=== PATIENT | female | born 1930 | race Caucasian/White ===

== ENCOUNTER 2018-02-24 20:40 | Observation (INO) | payer MEDICARE ==
[2018-02-24] MEDS ORDERED: Ondansetron PF 4 MG/2 ML Vial ONE (21:06)
[2018-02-24 21:27] LABS: Band 36 % (5-11); Hemoglobin 12.6 g/dL (12.0-16.0); Large Platelets SLIGHT; Lymphocytes 4 % (21-51); MDiff Complete? YES; Mean Corpuscular HGB CONC 34.6 g/dL (32.0-36.0); Mean Corpuscular Hemoglobin 31.9 pg (27.0-31.0); Mean Corpuscular Volume 92.2 fL (78.0-98.0); Mean Platelet Volume 8.4 fL (7.4-10.4); Neutrophil 60 % (42-75); Platelet Count 149 thou/uL (130-400); Platelet Morphology Comment Appears Adequate; RBC Distribution Width 11.4 % (11.5-14.5); Red Blood Cell (RBC) Count 3.95 mill/uL (4.20-5.40); White Blood Cell (WBC) Count 6.9 thou/uL (4.8-10.8)
[2018-02-24 21:29] LABS: ALT (SGPT) 21 U/L (8-55); AST (SGOT) 27 U/L (5-34); Albumin 3.8 g/dL (3.4-4.8); Alkaline Phosphatase 55 U/L (40-150); Anion Gap 19 mmol/L (10-20); BUN (Urea Nitrogen) 54 mg/dL (9.8-20.1); Bilirubin, Total 0.7 mg/dL (0.2-1.2); Calc. Creatinine Clearance 0 mL/min (70-130); Calcium 8.7 mg/dL (7.8-10.44); Carbon Dioxide 23 mmol/L (23-31); Chloride 95 mmol/L (98-107); Estimated GFR-MDRD 20; Globulin 2.6 g/dL (2.4-3.5); Glucose 175 mg/dL (83-110); Lipase 18 U/L (8-78); Protein, Total 6.4 g/dL (6.0-8.3); Sodium 133 mmol/L (136-145)
[2018-02-24 21:58] LABS: Potassium 3.5 mmol/L (3.5-5.1)
[2018-02-25] MEDS ORDERED: Loperamide HCl 2 MG CAP ONE (00:34)
[2018-02-25 05:49] LABS: #Basophils 0.1 thou/uL (0.0-0.2); #Eosinphils 0.1 thou/uL (0.0-0.7); #Lymphocytes 0.3 thou/uL (1.20-3.40); #Monocytes 0.5 thou/uL (0.11-0.59); #Neutrophils 8.1 thou/uL (1.40-6.50); %Basophils 0.6 % (0.0-1.0); %Eosinophils 0.6 % (0.0-10.0); %Lymphocytes 2.9 % (21.0-51.0); %Neutrophils 89.9 % (42.0-75.0); Hemoglobin 11.3 g/dL (12.0-16.0); Mean Corpuscular HGB CONC 34.5 g/dL (32.0-36.0); Mean Corpuscular Hemoglobin 31.7 pg (27.0-31.0); Mean Corpuscular Volume 91.7 fL (78.0-98.0); Platelet Count 129 thou/uL (130-400); RBC Distribution Width 11.7 % (11.5-14.5); Red Blood Cell (RBC) Count 3.58 mill/uL (4.20-5.40); White Blood Cell (WBC) Count 9.1 thou/uL (4.8-10.8)
[2018-02-25 05:55] LABS: Anion Gap 14 mmol/L (10-20); BUN (Urea Nitrogen) 49 mg/dL (9.8-20.1); Calc. Creatinine Clearance 0 mL/min (70-130); Calcium 7.9 mg/dL (7.8-10.44); Carbon Dioxide 25 mmol/L (23-31); Chloride 100 mmol/L (98-107); Estimated GFR-MDRD 23; Glucose 158 mg/dL (83-110); Potassium 3.6 mmol/L (3.5-5.1); Sodium 135 mmol/L (136-145)
== END 2018-02-25 07:20 | disposition home or self-care (01) ==
LOC: SCSER 20:40 → SCSEROBS 22:00
PROVIDERS: ADMIT Emergency Medicine; ATTEND Emergency Medicine
DX: E86.0 Dehydration (principal); R19.7 Diarrhea, unspecified; R11.2 Nausea with vomiting, unspecified; F03.90 Unspecified dementia, unspecified severity, without behavioral disturbance, psychotic disturbance, mood disturbance, and anxiety; G60.0 Hereditary motor and sensory neuropathy; E11.9 Type 2 diabetes mellitus without complications; E03.9 Hypothyroidism, unspecified; K21.9 Gastro-esophageal reflux disease without esophagitis; E78.5 Hyperlipidemia, unspecified; E78.00 Pure hypercholesterolemia, unspecified; I11.0 Hypertensive heart disease with heart failure; I50.9 Heart failure, unspecified; Z85.038 Personal history of other malignant neoplasm of large intestine; Z79.4 Long term (current) use of insulin; Z79.82 Long term (current) use of aspirin; Z79.899 Other long term (current) drug therapy; Z91.041 Radiographic dye allergy status; Z90.49 Acquired absence of other specified parts of digestive tract
CPT/HCPCS: 80048; 80053; 83690; 85025 ×2; 96361; 96374; 99284; G0378; J2405

== ENCOUNTER 2018-08-29 09:19 | Emergency (ER) | payer MEDICARE ==
--- NOTE | 2018-08-29 09:57 | RAD ---
XR Pelvis AP STANDARD HISTORY: Pelvic and hip pain status post fall. COMPARISON: None. FINDINGS: The pelvic ring is intact without evidence of fracture. SI joints are symmetric. No diastas es of the symphysis. Postoperative changes of the lumbar spine are seen. Vascular calcifications are noted. IMPRESSION: No evidence of fracture.
--- NOTE | 2018-08-29 09:58 | RAD ---
XR Hip Rt 2-3 View HISTORY: Right hip pain status post fall COMPARISON: None. FINDINGS: There are minimal arthritic changes of the hip. There are no signs of fracture or dislocati on. Vascular calcifications are noted. IMPRESSION: No evidence of fracture.
== END 2018-08-29 10:05 | disposition home or self-care (01) ==
LOC: SCSER 09:19
DX: S70.01XA Contusion of right hip, initial encounter (principal); E11.9 Type 2 diabetes mellitus without complications; E03.9 Hypothyroidism, unspecified; K21.9 Gastro-esophageal reflux disease without esophagitis; E78.5 Hyperlipidemia, unspecified; I10 Essential (primary) hypertension; F41.9 Anxiety disorder, unspecified; W19.XXXA Unspecified fall, initial encounter
CPT/HCPCS: 72170

== ENCOUNTER 2019-08-23 17:21 | Inpatient (IN) | payer MEDICARE, OTHER ==
--- NOTE | 2019-08-23 18:39 | RAD ---
RIGHT HIP: 08/23/19 Two views. HISTORY: Fall with injury to right hip. There is an intertrochanteric fracture of the right hip without significant displacement. Degenerative changes at the hip again noted. IMPRESSION: Acute intertrochanteric fracture right hip. POS: AGW
[2019-08-23] MEDS ORDERED: Fentanyl 100 MCG/2 ML VIAL ONE (19:15)
[2019-08-23 19:28] LABS: #Eosinphils 0.1 thou/uL (0.0-0.7); #Lymphocytes 1.3 thou/uL (1.20-3.40); #Neutrophils 7.4 thou/uL (1.40-6.50); %Basophils 0.5 % (0.0-1.0); %Eosinophils 1.4 % (0.0-10.0); %Lymphocytes 13.1 % (21.0-51.0); %Monocytes 10.1 % (0.0-10.0); %Neutrophils 74.9 % (42.0-75.0); Hemoglobin 12.6 g/dL (12.0-16.0); Mean Corpuscular HGB CONC 33.9 g/dL (32.0-36.0); Mean Corpuscular Hemoglobin 32.6 pg (27.0-31.0); Mean Corpuscular Volume 95.9 fL (78.0-98.0); Mean Platelet Volume 8.8 fL (7.4-10.4); Platelet Count 218 thou/uL (130-400); RBC Distribution Width 11.7 % (11.5-14.5); Red Blood Cell (RBC) Count 3.86 mill/uL (4.20-5.40); White Blood Cell (WBC) Count 9.9 thou/uL (4.8-10.8)
[2019-08-23 19:35] LABS: PTT 28.3 sec (22.9-36.1); Prothrombin Time 13.2 sec (12.0-14.7)
[2019-08-23 19:53] LABS: ALT (SGPT) 19 U/L (8-55); AST (SGOT) 25 U/L (5-34); Albumin 4.2 g/dL (3.4-4.8); Alkaline Phosphatase 95 U/L (40-110); Anion Gap 15 mmol/L (10-20); BUN (Urea Nitrogen) 32 mg/dL (9.8-20.1); Bilirubin, Total 0.6 mg/dL (0.2-1.2); Calc. Creatinine Clearance 0 mL/min (70-130); Carbon Dioxide 29 mmol/L (23-31); Chloride 100 mmol/L (98-107); Estimated GFR-MDRD 32; Globulin 3.3 g/dL (2.4-3.5); Glucose 75 mg/dL (83-110); Potassium 3.7 mmol/L (3.5-5.1); Protein, Total 7.5 g/dL (6.0-8.3); Sodium 140 mmol/L (136-145)
--- NOTE | 2019-08-23 20:21 | RAD ---
PORTABLE CHEST: 08/23/19 HISTORY: Preop. COMPARISON: 08/20/15. Borderline cardiomegaly is stable. Dual lead pacemaker device is again noted. The lung blackwell appear clear. No evidence of vascular congestion, effusion, or infiltrate. IMPRESSION: No acute process. POS: AGW
[2019-08-23] MEDS ORDERED: Acetaminophen 500 MG TAB ONE (20:36)
[2019-08-23] MEDS ORDERED: Ondansetron PF 4 MG/2 ML Vial ONE (20:36)
[2019-08-23] MEDS ORDERED: Morphine 4 MG/ML VIAL ONE (20:36)
[2019-08-23] MEDS ORDERED: Morphine 2 MG/ML VIAL SLOW IVP PRN (20:40)
[2019-08-23] MEDS ORDERED: hydrALAZINE 20 MG/ML VIAL SLOW IVP PRN (20:40)
[2019-08-23] MEDS ORDERED: Ondansetron PF 4 MG/2 ML Vial IVP PRN (20:40)
[2019-08-23] MEDS ORDERED: Dextrose 50% Abboject 50 ML SYRINGE SLOW IVP PRN (20:40)
[2019-08-23] MEDS ORDERED: Dextrose 5% in Water 1,000 ML IV PRN (20:40)
[2019-08-23] MEDS ORDERED: Sodium Chloride 0.9% 1,000 ML IV SCH (20:45)
[2019-08-23] MEDS ORDERED: traMADol HCl 50 MG TAB PO PRN (20:50)
--- NOTE | 2019-08-23 21:46 | HP ---
TRAUMA SURGEON: Dr. Polanco. CONSULTING PHYSICIAN: Dr. Jacobsen. HISTORY OF PRESENT ILLNESS: The patient is an 88-year-old female, who presented to the emergency department via EMS after mechanical fall at her assisted living facility. The patient reports she is not sure why she fell, but she denies any syncopal episode. Denies loss of consciousness or anticoagulation use. Reports no other recent events. Denies any cardiac type symptoms. Denies numbness and tingling in the bilateral upper and lower extremities. Denies neck or back pain. REVIEW OF SYSTEMS: All additional review of systems negative except as indicated above. PAST MEDICAL HISTORY: Diabetes, CKD, AV block with bradycardia, pacemaker, dementia, systolic heart failure, GERD, colon cancer, hyperlipidemia, hypothyroidism, hypertension, and osteoarthritis. PAST SURGICAL HISTORY: The patient reports that she has had surgeries, but could not remember them. She has no family at the bedside due to COVID-19. SOCIAL HISTORY: The patient lives at assisted living facility. She reports smoking previously, but has not for over 10 years. Denies alcohol and drug use. MEDICATIONS: Levothyroxine, Lipitor, Mucinex, Tylenol, aspirin, Effexor, cyanocobalamin, losartan, hydralazine, Milk of magnesia, melatonin, Robitussin, Glucagon emergency kit, MiraLAX, Dulera, multivitamins, saline nasal spray, Humalog, furosemide, and Cepacol lozenges. ALLERGIES: IODINE CONTRAST. PHYSICAL EXAMINATION: VITAL SIGNS: Temperature 98.3, pulse 62, respirations 18, oxygen saturation 97% on room air, and blood pressure 149/70. PRIMARY SURVEY: Airway intact. Adequate breath sounds bilaterally. 2+ pulses in bilateral radials, femorals, and DPs. GCS 14-15, -1 for occasional confusion, this is her baseline. Gross motor and sensation are intact. No laceration or external bleeding. The patient has 2 small bruises to her abdomen, which are from her insulin shots. SECONDARY SURVEY: HEAD: Normocephalic, atraumatic. No gross palpable skull deformities and tenderness. EYES: Pupils 3-2, equal, round, reactive bilaterally. ENT: No signs of trauma. C-SPINE: No step-offs or deformities. Nontender. C-collar not in place. CHEST: Nontender. No crepitus. No abrasions or ecchymosis. Equal chest movement. ABDOMEN: Soft, nontender, nondistended. PELVIS: Stable to palpation. RECTAL: Deferred. GENITOURINARY: Deferred. EXTREMITIES: The patient's right lower extremity is externally rotated with no signs of deformity. She has tenderness over the right hip. Reports pain to the right knee and right distal tib-fib, but no pain on palpation. No abrasions or ecchymosis noted. 2+ pulses in bilateral radials, femorals, and DPs. BACK/SPINE: The patient reports no pain. No tenderness reported. NEUROLOGIC: 5/5 strength in bilateral inorganic chemistry teacher, plantar flexion, dorsiflexion, gross normal sensation x4 extremities. LABORATORY FINDINGS: White count 9.9, hemoglobin 12.6, hematocrit 37.0, platelets 218. INR 1.0. Sodium 140, potassium 3.7, chloride 100, bicarb 29, BUN 32, creatinine 1.52, glucose 75, AST 25, ALT 19, alkaline phosphatase 95, total bilirubin 0.6. DIAGNOSTIC FINDINGS: X-ray of the right hip demonstrates acute intertrochanteric fracture of the right hip. Chest x-ray demonstrates no acute process. ASSESSMENT: 1. Status post mechanical fall from standing. 2. Right intertrochanteric femur fracture. 3. Acute traumatic pain secondary to trauma. 4. History of diabetes, chronic kidney disease, atrioventricular block with bradycardia, status post pacemaker, dementia, systolic heart failure, gastroesophageal reflux disease, colon cancer, hyperlipidemia, hypothyroidism, hypertension, and osteoarthritis. PLAN: The patient will be admitted to the Trauma Service. She will go to the regular surgical nursing floor. Orthopedic Surgery plans to take the patient to the OR in the morning for fixation of the right intertrochanteric femur fracture. She will have a diabetic diet tonight and be n.p.o. at midnight. She will have insulin sliding scale. She will have normal saline 75 an hour for a total of 1 L. She will have both p.r.n. and scheduled pain medications. Once her med rec has been completed, we will start her home medications as clinically indicated. Postoperatively, the patient will work with Physical and Occupational Therapy and likely need placement at a rehab versus shelter facility. This patient was discussed with Dr. Polanco before this dictation. Job ID: [id number]
[2019-08-23 22:21] LABS: Magnesium 2.1 mg/dL (1.6-2.6); Phosphorus 2.3 mg/dL (2.3-4.7)
[2019-08-23] MEDS ORDERED: Potassium Phosphate 15 MMOL in Sodium Chloride 0.9% 250 ML 250 ML IVPB SCH (23:00)
[2019-08-23 23:04] VITALS: BMI 27.3
[2019-08-23] MEDS: Acetaminophen 500 MG TAB PO SCH (23:17)
[2019-08-23] MEDS: Senokot S 8.6-50 MG TAB PO SCH (23:17)
[2019-08-23] MEDS: Famotidine/PF 20 mg/2ml Vial SLOW IVP SCH (23:17)
[2019-08-23] MEDS: traMADol HCl 50 MG TAB PO PRN (23:24)
[2019-08-24 02:03] LABS: Clarity Turbid (Clear); Specific Gravity, Urine 1.011 (1.002-1.036)
[2019-08-24 02:04] LABS: Bilirubin Negative (Negative); Blood, Urine Negative (Negative); Glucose, Urine (Dipstick) Normal (Negative); Ketone, Urine Negative (Negative); Leukocyte 500 Leu/uL (Negative); Nitrite Negative (Negative); Protein, Urine (Dipstick) Negative (Neg-Trace); RBC/HPF 0-3 HPF (0-3); Urobilinogen Normal mg/dL (Less than 2); WBC/HPF Greater than 50 HPF (0-3)
[2019-08-24 02:05] LABS: Bacteria/HPF 3+ HPF (None Seen); Squamous Epithelial 0-3 HPF (0-3)
[2019-08-24 02:06] LABS: Urine Culture Reflex Yes Yes
[2019-08-24] MEDS ORDERED: Sodium Chloride 0.9% 1,000 ML IV SCH (02:30)
[2019-08-24] MEDS: Acetaminophen 500 MG TAB PO SCH ×4 (04:56→22:58)
[2019-08-24] MEDS: traMADol HCl 50 MG TAB PO PRN (04:56)
[2019-08-24] MEDS: Cipro 250 MG TAB PO SCH ×2 (04:57→20:01)
[2019-08-24 05:35] LABS: Band 13 % (5-11); Eosinophils 1 % (0-10); Hemoglobin 10.9 g/dL (12.0-16.0); Lymphocytes 16 % (21-51); MDiff Complete? YES; Mean Corpuscular HGB CONC 31.5 g/dL (32.0-36.0); Mean Corpuscular Hemoglobin 30.6 pg (27.0-31.0); Mean Corpuscular Volume 97.3 fL (78.0-98.0); Monocytes 14 % (0-10); Neutrophil 56 % (42-75); Platelet Count 176 thou/uL (130-400); Platelet Morphology Comment Appears Adequate; RBC Distribution Width 11.6 % (11.5-14.5); Red Blood Cell (RBC) Count 3.55 mill/uL (4.20-5.40); White Blood Cell (WBC) Count 8.9 thou/uL (4.8-10.8)
[2019-08-24 05:45] LABS: Anion Gap 17 mmol/L (10-20); BUN (Urea Nitrogen) 33 mg/dL (9.8-20.1); Calc. Creatinine Clearance 29 mL/min (70-130); Calcium 8.9 mg/dL (7.8-10.44); Carbon Dioxide 26 mmol/L (23-31); Chloride 102 mmol/L (98-107); Estimated GFR-MDRD 33; Glucose 137 mg/dL (83-110); Phosphorus 6.8 mg/dL (2.3-4.7); Potassium 4.8 mmol/L (3.5-5.1); Sodium 140 mmol/L (136-145)
[2019-08-24] MEDS ORDERED: CEFAZOLIN 2 GM in Premix Bag 1 BAG IVPB SCH (08:15)
[2019-08-24] MEDS ORDERED: Levothyroxine Sodium 75 MCG TAB PO SCH (08:30)
[2019-08-24] MEDS: Senokot S 8.6-50 MG TAB PO SCH ×2 (08:50→20:00)
[2019-08-24] MEDS: Carvedilol 6.25 MG TAB PO SCH ×4 (08:50→21:38)
[2019-08-24] MEDS: Venlafaxine HCl XR 75 MG CAP PO SCH (08:50)
[2019-08-24] MEDS: Polyethylene Glycol 3350 17 GM Packet PO SCH (08:55)
--- NOTE | 2019-08-24 09:14 | CON ---
DATE OF CONSULTATION: This is Rudy Gann PA-C dictating a report for Shane Jacobsen MD. We were asked by Trauma and the Emergency Room to see the patient. The patient lives in [place] and just took a tumble, did not hit her head, does not recall tripping, just took a tumble and fell and broke her hip on the right side. The patient is in a fair amount of pain, but did get some rest last night. She is very pleasant, but currently in no acute distress. She has no numbness and tingling down her leg, and she is moving her knee to her ankle down well. Any movement of that hip though causes her a little bit of pain. PAST MEDICAL HISTORY: Diabetes; AV block; kidney disease; pacemaker; dementia; heart failure, systolic; GERD; colon cancer; hyperlipidemia; hypothyroidism; hypertension; osteoarthritis. PAST SURGICAL HISTORY: She has had multiple surgeries, but currently this morning, she is a little confused and not able to remember all of her surgeries. We will get these when her daughter comes in today. SOCIAL HISTORY: Resides at [place]. drug use. CURRENT MEDICATIONS: 1. Levothyroxine. 2. Lipitor. 3. Mucinex. 4. Tylenol. 5. Aspirin. 6. Effexor. 7. Vitamin B12. 8. Losartan. 9. Hydralazine. 10. Milk of magnesia. 11. Melatonin. 12. Robitussin. 13. Glucagon emergency kit. 14. MiraLAX. 15. Dulera. 16. Multivitamins. 17. Saline nasal spray. 18. Humalog. 19. Furosemide. 20. Cepacol lozenges. ALLERGIES: IODINE CONTRAST. FAMILY HISTORY: Family history for this particular hospital visit is noncontributory. REVIEW OF SYSTEMS: Confusion, some dementia, but other than that, no complaints besides her right hip pain. Rest of review of systems negative. PHYSICAL EXAMINATION: GENERAL: Well-nourished, well-developed female, alert, very pleasant, and in no acute distress. She is answering simple questions okay, but she is a little bit confused. HEENT: Face symmetric. Tongue midline. Scalp atraumatic. NECK: Supple. Trachea midline. EXTREMITIES: Upper extremities equal size, shape, and symmetry. Normal bulk and tone. Movements, sensations, and correction worker are equal. RESPIRATORY: Respirations 16. No acute distress. PELVIS: Rocked the pelvis and it was nontender. MUSCULOSKELETAL: Right hip; I moved this a little bit and she squawks, so we did not do any further range of motion. Her lower extremities are also equal size, shape, and symmetry. Normal bulk and tone with the exception of the right hip that does have a little bit of bruising and tenderness to palpation. Her DP/PT pulses are present equally and sensations are okay. ASSESSMENT: Right hip fracture. PLAN: I spoke with the patient, but we will probably need to talk to her [id number] because she is a little confused, but we need to do a dynamic hip screw and stabilization of the patient's hip. I did tell her the risks and benefits of surgery twice and she did say she was amenable to get her hip fixed, but again I think we definitely need someone else to sign off the permit because she is confused. We will plan on getting her set up this afternoon. Job ID: [id number]
[2019-08-24] MEDS ORDERED: Rocuronium Bromide 10 MG/ML (10ML VIAL) ONE (10:37)
[2019-08-24] MEDS ORDERED: PHENYLEPHRINE-NS 100 MCG/ML 10 ML SYRINGE ONE (10:37)
[2019-08-24] MEDS ORDERED: Bupivacaine HCl 0.5%/Epinephrine 1:200,000/PF 30 ml Vial ONE (10:37)
[2019-08-24] MEDS ORDERED: Ondansetron PF 4 MG/2 ML Vial ONE (10:37)
[2019-08-24] MEDS ORDERED: PROPOFOL 200 MG/20 ML VIAL ONE (10:37)
[2019-08-24] MEDS ORDERED: EPHEDRINE 25 MG/5 ML SYRINGE ONE (10:37)
[2019-08-24] MEDS ORDERED: Lidocaine 1% PF 5 ML VIAL ONE (10:37)
[2019-08-24] MEDS ORDERED: Glycopyrrolate 0.2 MG/ML 5 ML SYRINGE ONE (10:37)
[2019-08-24] MEDS: traMADol HCl 50 MG TAB PO SCH ×3 (10:50→22:58)
[2019-08-24] MEDS ORDERED: Albuterol Sulfate 2.5 mg/3 ml Neb NEB PRN (11:29)
--- NOTE | 2019-08-24 12:42 | PRG ---
DATE OF SERVICE: 08/24/2019 SUBJECTIVE: The patient was evaluated by the Multidisciplinary Trauma Service on morning rounds. The patient's daughter was present at the time of evaluation. The patient denied any acute overnight events. Her only complaint at this time was moderate residual pain in her right hip. She otherwise appeared well and was jovial and conversant with hospital staff. OBJECTIVE: VITAL SIGNS: Reviewed and the patient's temperature was found to be 98.6 degrees, pulse 60 beats per minute, respirations 16 per minute, oxygen saturation 100% on 2 L nasal cannula, and blood pressure was found to be 117/66. GENERAL: Elderly appearing female, in no acute cardiopulmonary distress. HEENT: Head is normocephalic and atraumatic with eyes that demonstrated vision that was grossly intact and extraocular muscles grossly intact. Left eye demonstrated a coloboma, right eye demonstrated a pupil that was round and reactive to light. Hearing was grossly intact. Nose demonstrated moist membranes. Mouth demonstrated moist membranes. No apparent erythema or posterior pharyngeal exudates. NECK: Full range of motion with no tracheal deviation or cervical lymphadenopathy. RESPIRATORY: Revealed clear lungs to auscultation bilaterally without wheezes, rales, or rhonchi. CARDIOVASCULAR: Revealed regular rate and rhythm without murmurs, clicks, gallops, or rubs. GI: Protuberant abdomen with normoactive bowel sounds x4. Had no tenderness to palpation. MUSCULOSKELETAL: Mild deformity of the right lower extremity with external rotation noted and tenderness to palpation noted over the right trochanter. The patient was otherwise able to move all 4 extremities equally and purposefully with distal pulses intact in both lower extremities at the dorsalis pedis arteries. ASSESSMENT: 1. Mechanical fall resulting in right intertrochanteric femoral fracture. 2. Diabetes. 3. Chronic kidney disease. 4. Heart block with resultant bradycardia status post pacemaker placement. 5. Dementia. 6. Systolic heart failure. 7. Gastroesophageal reflux disease. 8. History of colon cancer. 9. Hyperlipidemia. 10. Hypothyroidism. 11. Hypertension. 12. Osteoarthritis. PLAN: The patient appears well at this time and is currently n.p.o. with IV fluids running with normal saline at 75 mL per hour in preparation for upcoming right-sided hemiarthroplasty. The patient endorses moderate pain. We will continue to monitor pain closely and augment current pain regimen as needed. Physical Therapy and Occupational Therapy to evaluate the patient status post surgery with likely need for case management assistance for transfer back to her retirement. This patient was seen and evaluated by Dr. Joaquín Murrieta, Trauma Services on morning rounds, he agrees with the aforementioned assessment and plan. Job ID: [id number]
[2019-08-24] MEDS ORDERED: Fentanyl 100 MCG/2 ML VIAL ONE ×2 (13:40→14:19)
[2019-08-24 13:54] LABS: SARS-CoV-2 MS2 Positive; SARS-CoV-2 N Gene Negative; SARS-CoV-2 S Gene Negative; SARS-CoV-2 orf1ab Negative
[2019-08-24] MEDS ORDERED: Lidocaine 2% Jelly 5 ML TUBE ONE (14:19)
--- NOTE | 2019-08-24 15:28 | RAD ---
EXAM: 2 views of the right hip HISTORY: ORIF of right hip fracture COMPARISON: 08/23/2019 FINDINGS: 2 views of the right hip shows hardware spanning the fracture of the intertrochanteric haven on of the femur. No perihardware lucency is seen. IMPRESSION: Status post ORIF of right femur fracture without evidence of complication.
[2019-08-24] MEDS ORDERED: Promethazine HCl 25 MG/ML VIAL IM PRN (15:51)
[2019-08-24] MEDS ORDERED: Promethazine HCl 25 MG/ML VIAL SLOW IVP PRN (15:51)
[2019-08-24] MEDS ORDERED: Ondansetron HCl/PF 4 MG/2 ML Vial IVP PRN (15:51)
[2019-08-24] MEDS: Atorvastatin Calcium 40 MG TAB PO SCH (20:00)
[2019-08-24] MEDS: CEFAZOLIN 2 GM in Premix Bag 1 BAG IVPB SCH (20:01)
[2019-08-24] MEDS: Famotidine/PF 20 mg/2ml Vial SLOW IVP SCH (20:01)
[2019-08-24 21:54] LABS: Anion Gap 15 mmol/L (10-20); BUN (Urea Nitrogen) 33 mg/dL (9.8-20.1); Calc. Creatinine Clearance 25 mL/min (70-130); Calcium 8.2 mg/dL (7.8-10.44); Carbon Dioxide 25 mmol/L (23-31); Chloride 103 mmol/L (98-107); Estimated GFR-MDRD 28; Glucose 191 mg/dL (83-110); Magnesium 1.8 mg/dL (1.6-2.6); Phosphorus 5.2 mg/dL (2.3-4.7); Potassium 4.3 mmol/L (3.5-5.1); Sodium 139 mmol/L (136-145)
[2019-08-24 22:04] LABS: Band 8 % (5-11); Hemoglobin 9.9 g/dL (12.0-16.0); Hypochromia SLIGHT = 6-15 cells (100X) (0-5/hpf); Lymphocytes 3 % (21-51); MDiff Complete? YES; Mean Corpuscular HGB CONC 32.6 g/dL (32.0-36.0); Mean Corpuscular Hemoglobin 32.1 pg (27.0-31.0); Mean Corpuscular Volume 98.4 fL (78.0-98.0); Mean Platelet Volume 8.9 fL (7.4-10.4); Monocytes 11 % (0-10); Neutrophil 78 % (42-75); Platelet Count 135 thou/uL (130-400); Platelet Morphology Comment Appears Adequate; RBC Distribution Width 11.7 % (11.5-14.5); Red Blood Cell (RBC) Count 3.07 mill/uL (4.20-5.40); White Blood Cell (WBC) Count 10.4 thou/uL (4.8-10.8)
[2019-08-24] MEDS: Cyclobenzaprine 10 MG TAB PO PRN (22:24)
[2019-08-24] MEDS ORDERED: Hydrocortisone Sod Succ/PF 100 mg/2 ml Vial IVP SCH (22:45)
[2019-08-24] MEDS ORDERED: Magnesium 2 GM/50 ML 2 GM in Premix Bag 1 BAG IVPB SCH (23:00)
--- NOTE | 2019-08-24 23:50 | OP ---
DATE OF PROCEDURE: 08/24/2019 PREOPERATIVE DIAGNOSIS: Right intertrochanteric femur fracture. POSTOPERATIVE DIAGNOSIS: Right intertrochanteric femur fracture. PROCEDURE PERFORMED: Open reduction and internal fixation of right intertrochanteric femur fracture. ANESTHESIA: General. SUPERVISOR VENDOR QUALITY: Wil Epstein PA-C. ESTIMATED BLOOD LOSS: 100 mL. IMPLANTS: Synthes DHS system was used with 135-degree 3-hole sideplate and 105 mm hip screw. COMPLICATIONS: None. DRAINS: None. SPECIMEN: None. OUTCOME: Near-anatomic alignment. INDICATION: Patient is an 88-year-old lady, status post ground level fall sustaining a mildly displaced 2-part right intertrochanteric femur fracture. After discussion with the patient including risks and benefits, we decided to proceed with open reduction and internal fixation for this fracture to facilitate mobilization and wound healing. Informed consent has been obtained. I believe all questions have been answered. DESCRIPTION OF PROCEDURE: Patient was brought to the operating room and a time-out performed followed by induction of general anesthesia. Patient was then positioned supine on the fracture table with the well leg held in extension and the injured extremity held in longitudinal traction. A sterile prep and drape was then performed of the right lateral thigh. Next, a small incision was made distal to the greater trochanter. After skin was sharply incised, dissection was carried down bluntly to the underlying fascia of the fascia fabrice. This was incised in line with skin incision and reflected anteriorly and posteriorly revealing the fascia of the vastus lateralis. This fascia was also incised and then the muscle belly swept off the posterior leaflet of the fascia and reflected anteriorly gaining access to the lateral cortex of the femur. Next, a threaded guidewire was passed from the lateral cortex of the femur up the femoral neck into the femoral head approaching a [id number] position. Once appropriately positioned, measurement was taken off this pin to determine both reaming depths and hip screw length. The step reamer was then passed over this guidewire reaming to a depth of 105 mm. Next, 105 mm hip screw with 135-degree 3-hole sideplate was loaded onto the appropriate jig and then passed over the guidewire with the screw brought up into the subcortical bone of the femoral head. The plate was then affixed to the lateral wall of the femur using 4.5 mm cortical screws. A total of three screws used. With completion of this, AP and lateral C-arm images were obtained that showed near-anatomic alignment of fracture and appropriate positioning of hardware. The wound was again irrigated and closed in layers with 0 Vicryl for the fascial closure followed by 2-0 Vicryl subcutaneously and varinder for the skin. Xeroform gauze and tape dressing applied to the lateral thigh and then patient was transferred to recovery room in stable condition. There were no complications. She tolerated the procedure well. Job ID: [id number]
--- NOTE | 2019-08-25 00:47 | PRG ---
DATE OF SERVICE: 08/24/2019 SUBJECTIVE: Patient was seen this evening postoperatively. Upon my evaluation, she was lying flat in the bed with 2 L nasal cannula. She was saturating 98%. Initially postoperatively, the patient had some lower blood pressures with systolic of 92. Laboratory evaluation indicated acute adrenal insufficiency and hydrocortisone was administered. Her blood pressure improved subsequently. She denied any shortness of breath or orthopnea. She had no significant swelling in her extremities. Roberson catheter was in place, however, output for the past 12 hours has not been documented. I asked Nursing to make sure to document and monitor her urinary output. The patient is on Lasix at home. She has not been restarted on that yet. She has a mildly worsening kidney function this evening and elevated BNP. However, she has no significant signs of fluid overload or acute heart failure exacerbation on my physical exam. OBJECTIVE: VITAL SIGNS: Temperature 97.8, pulse 64, respirations 18, oxygen saturation 99% on 2 L nasal cannula, blood pressure 101/58. GENERAL: Well-appearing elderly female, lying in bed supine with no signs of acute distress. PULMONARY: Equal chest rise and fall. Clear breath sounds throughout her lung blackwell with no signs of acute respiratory distress. CARDIAC: Regular rate and rhythm. GASTROINTESTINAL: Abdomen is soft, nontender, nondistended. EXTREMITIES: Gross motor and sensation intact. NEUROLOGIC: GCS is 14 to 15, -1 for confusion, this is her baseline. LABORATORY FINDINGS: White count 10.9, hemoglobin 9.9, hematocrit 30.2, platelets 135. Sodium 139, potassium 4.3, chloride 103, bicarb 25, BUN 33, creatinine 1.73, glucose 191, phosphorus 5.2, magnesium 1.8. BNP 1228. DIAGNOSTIC FINDINGS: There are no new diagnostic findings to report. ASSESSMENT: 1. Status post mechanical fall from standing. 2. Right intertrochanteric femur fracture, status post repair. 3. Uncomplicated urinary tract infection, currently on Cipro. 4. History of diabetes, chronic kidney disease, AV samir block, pacemaker, dementia, systolic heart failure, gastroesophageal reflux disease, colon cancer, hyperlipidemia, hypothyroidism, hypertension, and osteoarthritis. 5. Acute adrenal insufficiency. PLAN: Continue current regular diet. The patient no longer on IV fluids. We will continue to hold her diuretics as well overnight. Start hydrocortisone for acute adrenal insufficiency. Closely monitor cardiopulmonary status. We will re-evaluate blood work in the morning and consider restarting her home Lasix. If she develops any concerning signs of acute heart failure, we will give her IV Lasix at that time. Continue all home medications as previously ordered with hold parameters. Job ID: [id number]
[2019-08-25] MEDS: Hydrocortisone Sod Succ/PF 100 mg/2 ml Vial IVP SCH ×4 (05:20→23:15)
[2019-08-25] MEDS: Levothyroxine Sodium 75 MCG TAB PO SCH (05:20)
[2019-08-25] MEDS: CEFAZOLIN 2 GM in Premix Bag 1 BAG IVPB SCH ×2 (05:20→14:34)
[2019-08-25] MEDS: Acetaminophen 500 MG TAB PO SCH ×4 (05:20→23:14)
[2019-08-25] MEDS: traMADol HCl 50 MG TAB PO SCH ×4 (05:21→22:48)
[2019-08-25] MEDS: Cipro 250 MG TAB PO SCH ×2 (05:21→19:56)
[2019-08-25 05:52] LABS: #Lymphocytes 0.6 thou/uL (1.20-3.40); #Monocytes 0.5 thou/uL (0.11-0.59); #Neutrophils 8.8 thou/uL (1.40-6.50); %Basophils 0.1 % (0.0-1.0); %Eosinophils 0.2 % (0.0-10.0); %Monocytes 5.1 % (0.0-10.0); %Neutrophils 88.6 % (42.0-75.0); Hemoglobin 10.1 g/dL (12.0-16.0); Mean Corpuscular HGB CONC 32.3 g/dL (32.0-36.0); Mean Corpuscular Hemoglobin 31.9 pg (27.0-31.0); Mean Corpuscular Volume 98.7 fL (78.0-98.0); Mean Platelet Volume 9.2 fL (7.4-10.4); Platelet Count 140 thou/uL (130-400); RBC Distribution Width 11.6 % (11.5-14.5); Red Blood Cell (RBC) Count 3.15 mill/uL (4.20-5.40); White Blood Cell (WBC) Count 9.9 thou/uL (4.8-10.8)
[2019-08-25 06:15] LABS: Anion Gap 16 mmol/L (10-20); BUN (Urea Nitrogen) 33 mg/dL (9.8-20.1); Calc. Creatinine Clearance 24 mL/min (70-130); Calcium 8.4 mg/dL (7.8-10.44); Carbon Dioxide 26 mmol/L (23-31); Chloride 101 mmol/L (98-107); Estimated GFR-MDRD 27; Glucose 183 mg/dL (83-110); Magnesium 2.4 mg/dL (1.6-2.6); Phosphorus 5.7 mg/dL (2.3-4.7); Potassium 4.7 mmol/L (3.5-5.1); Sodium 138 mmol/L (136-145)
[2019-08-25] MEDS: Mometasone 200 MCG/Formoterol 5 MCG 120 PUFF INHALER INH SCH (06:37)
[2019-08-25] MEDS ORDERED: Furosemide 40 MG/4 ML VIAL SLOW IVP SCH (09:00)
[2019-08-25] MEDS: prednisoLONE 1% Ophth Susp 5 ml Bottle EA EYE SCH (10:07)
[2019-08-25] MEDS: Senokot S 8.6-50 MG TAB PO SCH ×2 (10:08→19:56)
[2019-08-25] MEDS: Polyethylene Glycol 3350 17 GM Packet PO SCH (10:08)
[2019-08-25] MEDS: Carvedilol 6.25 MG TAB PO SCH ×3 (10:09→19:57)
[2019-08-25] MEDS: Heparin 5,000 UNITS/ML VIAL SC SCH ×2 (10:10→19:56)
[2019-08-25] MEDS: Venlafaxine HCl XR 75 MG CAP PO SCH (10:12)
--- NOTE | 2019-08-25 10:14 | RAD ---
XR Shoulder Lt 2 View History: Fall. Shoulder pain Comparison: None Findings: Severe osseous demineralization of the humeral head limits evaluation for nondisplaced frac ture. No displaced fracture is appreciated on these limited 2 views. Large osteophytes are present. Impression: No displaced fracture on these limited 2 views.
[2019-08-25] MEDS: Insulin Regular 300 UNITS/3 ML VIAL SC PRN ×2 (12:24→18:27)
--- NOTE | 2019-08-25 14:19 | PRG ---
DATE OF SERVICE: 08/25/2019 SUBJECTIVE: The patient was evaluated by the Multidisciplinary Trauma Service on morning rounds. The patient's daughter was present at the time of evaluation. The patient denied any acute overnight events as did nursing staff; however, the patient appeared to be mildly confused at the time of evaluation. She had a sitter present during the evaluation. Per review of the patient's chart, there was suspicion of acute adrenal insufficiency by the Trauma night team and the patient was subsequently administered hydrocortisone and placed on 2 L of nasal cannula. OBJECTIVE: VITAL SIGNS: Reviewed and the patient was found to have a temperature of 98.6, pulse 60 beats per minute, blood pressure 121/66, respirations 16 per minute, and oxygen saturation 94% on 2 L O2 via nasal cannula. GENERAL: Elderly appearing female lying in bed, in no acute cardiopulmonary distress. She was resting and favoring her right side with her right lower extremity elevated. She was pleasant and jovial throughout the encounter. HEENT: Head was normocephalic and atraumatic. Eyes demonstrated coloboma of left eye with right eye demonstrating a pupil that was round and reactive to light. Hearing was grossly intact. Nose demonstrated moist membranes. Mouth demonstrated moist membranes with no evidence of erythema or posterior pharyngeal exudate. NECK: No evidence of tracheal deviation or cervical lymphadenopathy. Range of motion was full. CARDIOVASCULAR: Regular rate and rhythm without murmurs, clicks, gallops or rubs. RESPIRATORY: Mild crackles on the left lower lobe. Lungs were otherwise clear to auscultation without wheezes or rhonchi. GI: Protuberant abdomen with normoactive bowel sounds x4. There was no tenderness to palpation noted. MUSCULOSKELETAL: Right lower extremity demonstrated a well-healing surgical incision scar without evidence of drainage or erythema. The patient was able to wiggle her toes. Pulses were intact distally. The patient was able to move both upper extremities freely and equally with pulses intact distally as well. NEUROLOGIC: The patient was A and O x1 with a [place] Coma Scale of 14; eyes 4, verbal 4, motor response 6. LABORATORY ANALYSIS: White blood cell count of 9.9, hemoglobin 10.1, hematocrit 31.1, and platelet count 140. Chem panel revealed a sodium of 138; potassium 4.7; chloride 101; carbon dioxide 26; BUN 33; creatinine 1.7, mildly elevated from 1.52 on admission; glucose 183; calcium 8.4; phosphorus 5.7; magnesium 2.4. BNP 1385.9. ASSESSMENT: 1. Mechanical fall resulting in right intertrochanteric femoral fracture, status post open reduction and internal fixation. 2. Mild heart failure exacerbation. 3. Diabetes. 4. Chronic kidney disease. 5. Heart block with resultant bradycardia, status post pacemaker placement. 6. Dementia. 7. Gastroesophageal reflux disease. 8. History of colon cancer. 9. Hyperlipidemia. 10. Hypothyroidism. 11. Hypertension. 12. Osteoarthritis. PLAN: The patient appears well at this time with no complications noted during her surgical procedure yesterday; however, the patient does appear to be slightly volume overloaded based on her increased oxygen demand and crackles noted at the left lower lobe. We will administer furosemide 40 mg IV x1 today and restart the patient's home diuretic regimen. We will continue to monitor the patient's pain closely and augment pain medication regimen as needed. We will encourage cooperation with physical therapy and occupational therapy in order to evaluate ongoing need for discharge planning. The patient will likely go back to her custodial. The patient was seen and evaluated by Dr. Joaquín Murrieta, Trauma Services, on morning rounds. He agrees with the aforementioned assessment and plan. Job ID: [id number]
[2019-08-25] MEDS: Atorvastatin Calcium 40 MG TAB PO SCH (19:56)
[2019-08-25] MEDS: Famotidine/PF 20 mg/2ml Vial SLOW IVP SCH (19:56)
--- NOTE | 2019-08-26 01:15 | PRG ---
DATE OF SERVICE: 08/26/2019 SUBJECTIVE: The patient was seen this evening during rounds. She was lying in bed comfortably, getting ready for sleep with no signs of acute distress. She tolerated her meals. Pain is well controlled. Sitter at bedside. OBJECTIVE: VITAL SIGNS: Temperature 98.2, pulse 71, respirations 18, oxygen saturation 97% on 2 L nasal cannula, and blood pressure 146/78. GENERAL: Well-appearing elderly female, lying in bed with no signs of acute distress. PULMONARY: Equal chest rise and fall. No signs of acute respiratory distress. ASSESSMENT: 1. Status post mechanical fall from standing. 2. Right intertrochanteric femur fracture, status post repair. 3. Urinary tract infection, uncomplicated. 4. Acute adrenal insufficiency, resolving. 5. Acute delirium, improved. 6. History of diabetes, chronic kidney disease, AV block, pacemaker, dementia, systolic heart failure, gastroesophageal reflux disease, colon cancer, hyperlipidemia, hypothyroidism, hypertension, and osteoarthritis. PLAN: We will place the patient on a diabetic diet. Postoperatively, she was placed on a regular diet. Increase her sliding scale. Complete A1c in the morning. Continue physical and occupational therapy. Re-evaluate for additional Lasix in the morning as well. She is pending placement at acute rehab facility. We will likely discontinue a sitter tomorrow. Job ID: [id number]
[2019-08-26] MEDS: traMADol HCl 50 MG TAB PO SCH ×2 (04:56→11:25)
[2019-08-26] MEDS: Acetaminophen 500 MG TAB PO SCH ×4 (05:21→23:08)
[2019-08-26] MEDS: Hydrocortisone Sod Succ/PF 100 mg/2 ml Vial IVP SCH (05:21)
[2019-08-26] MEDS: Levothyroxine Sodium 75 MCG TAB PO SCH (05:26)
[2019-08-26] MEDS: Cipro 250 MG TAB PO SCH ×2 (05:26→20:41)
[2019-08-26] MEDS: Insulin Regular 300 UNITS/3 ML VIAL SC PRN ×3 (05:27→18:38)
[2019-08-26 05:56] LABS: Hemoglobin 8.7 g/dL (12.0-16.0); Mean Corpuscular HGB CONC 32.4 g/dL (32.0-36.0); Mean Corpuscular Hemoglobin 31.8 pg (27.0-31.0); Mean Corpuscular Volume 98.1 fL (78.0-98.0); Mean Platelet Volume 9.3 fL (7.4-10.4); Platelet Count 130 thou/uL (130-400); RBC Distribution Width 11.6 % (11.5-14.5); Red Blood Cell (RBC) Count 2.72 mill/uL (4.20-5.40); White Blood Cell (WBC) Count 10.8 thou/uL (4.8-10.8)
[2019-08-26 06:20] LABS: Anion Gap 14 mmol/L (10-20); BUN (Urea Nitrogen) 46 mg/dL (9.8-20.1); Calc. Creatinine Clearance 19 mL/min (70-130); Calcium 8.2 mg/dL (7.8-10.44); Carbon Dioxide 27 mmol/L (23-31); Chloride 96 mmol/L (98-107); Estimated GFR-MDRD 20; Glucose 302 mg/dL (83-110); Magnesium 2.4 mg/dL (1.6-2.6); Phosphorus 3.8 mg/dL (2.3-4.7); Potassium 4.6 mmol/L (3.5-5.1); Sodium 132 mmol/L (136-145)
[2019-08-26] MEDS: Mometasone 200 MCG/Formoterol 5 MCG 120 PUFF INHALER INH SCH (06:43)
[2019-08-26] MEDS: Heparin 5,000 UNITS/ML VIAL SC SCH ×2 (09:12→20:42)
[2019-08-26] MEDS: Venlafaxine HCl XR 75 MG CAP PO SCH (09:13)
[2019-08-26] MEDS: Senokot S 8.6-50 MG TAB PO SCH ×2 (09:13→20:42)
[2019-08-26] MEDS: Carvedilol 6.25 MG TAB PO SCH ×3 (09:13→20:42)
[2019-08-26] MEDS: prednisoLONE 1% Ophth Susp 5 ml Bottle EA EYE SCH (09:14)
[2019-08-26] MEDS: Polyethylene Glycol 3350 17 GM Packet PO SCH (09:14)
[2019-08-26] MEDS ORDERED: traMADol HCl 50 MG TAB PO PRN (12:11)
--- NOTE | 2019-08-26 18:42 | PRG ---
DATE OF SERVICE: 08/26/2019 SUBJECTIVE: The patient was seen during morning rounds on the surgical floor. The patient is postoperative day #2, status post open reduction and internal fixation of her right intertrochanteric femur fracture. The patient was gently diuresed yesterday as she had an increase in her BNP. The patient was also requiring oxygen. The patient had no overnight events. The patient's blood sugars have been elevated and was increased to a moderate sliding scale. The patient has been on hydrocortisone for acute adrenal insufficiency, but blood pressure has much improved. OBJECTIVE: VITAL SIGNS: Blood pressure is 148/76, pulse 62, temperature 98.5, respirations 18, and SpO2 of 97% on room air. GENERAL: Elderly female, awake and alert, in no distress, sitting up in the bedside chair. RESPIRATORY: Equal chest rise and fall, no respiratory distress. CARDIAC: Regular rate and regular rhythm. EXTREMITIES: Moves all extremities. NEUROLOGIC: No focal deficits. LABORATORY DATA: WBC 10.3, RBC 2.27, hemoglobin 8.7, and hematocrit 26.7. Sodium 132, potassium 4.6, chloride 96, BUN 46, creatinine 2.33, estimated GFR 20, glucose 302, and calcium 8.2. Phosphorus 3.8. Magnesium 2.4. BNP 1446.2. IMPRESSION: 1. Mechanical fall with right intertrochanteric femur fracture status post repair. 2. Mild heart failure exacerbation, improved. 3. Urinary tract infection on admission, treated. 4. Acute adrenal insufficiency, resolved. 5. Yjoyg-uf-xknkvof kidney disease, stage 3, worsening. 6. Hyponatremia. 7. History of diabetes, pacemaker, dementia, systolic heart failure, gastroesophageal reflux disease, colon cancer, hypertension, and osteoarthritis. PLAN: We will stop the patient's hydrocortisone for acute adrenal insufficiency as her blood pressure has much improved and has been mildly hypertensive. We will increase moderate sliding scale for now and decrease as needed. We will place the patient on a free-water restriction 1 L per day. The patient may have unlimited Gatorade for hyponatremia. The patient's worsening renal function is likely secondary to being diuresed yesterday. We will continue to monitor. We will continue to encourage oral intake. We will increase physical and occupational therapy. The patient is pending placement, referral was sent to [facility] as the patient lives at [facility]. We will have to await insurance authorization, which likely will not be done today or over the weekend. We will anticipate the patient being here until at least Thursday. Job ID: [id number]
[2019-08-26] MEDS: Atorvastatin Calcium 40 MG TAB PO SCH (20:42)
[2019-08-26] MEDS ORDERED: Hydrocortisone Sod Succ/PF 100 mg/2 ml Vial IVP SCH (21:00)
[2019-08-26] MEDS: Cyclobenzaprine 10 MG TAB PO PRN (22:02)
[2019-08-27] MEDS: Melatonin 3 MG TAB PO PRN (00:43)
[2019-08-27] MEDS: Insulin Regular 300 UNITS/3 ML VIAL SC PRN ×5 (00:43→21:16)
--- NOTE | 2019-08-27 02:15 | PRG ---
DATE OF SERVICE: 08/26/2019 SUBJECTIVE: The patient was seen this evening during rounds. She was lying in bed, resting comfortably. She was awake. She reported she was having difficulty sleeping and agreed that melatonin might be of use. She reported no significant pain. OBJECTIVE: VITAL SIGNS: Temperature 99.1, pulse 61, respirations 18, oxygen saturation 91% on 1 L nasal cannula, blood pressure 119/74. GENERAL: Well-appearing elderly female, lying in bed with no signs of acute distress. PULMONARY: Equal chest rise and fall. No signs of acute respiratory distress. ASSESSMENT: 1. Status post mechanical fall from standing. 2. Right intertrochanteric femur fracture, status post repair. 3. Urinary tract infection, uncomplicated. 4. Acute adrenal insufficiency, resolved. 5. History of diabetes. 6. Chronic kidney disease. 7. AV block. 8. Pacemaker. 9. Dementia. 10. Systolic heart failure. 11. Gastroesophageal reflux disease. 12. Colon cancer. 13. Hyperlipidemia. 14. Hypothyroidism. 15. Hypertension. 16. Osteoarthritis. PLAN: Continue current diet and pain regimen. Add melatonin, hydrocortisone was stopped yesterday. We will continue to monitor her vital signs. We will discontinue her Roberson in the morning. She is pending placement at [facility]. She is ready for discharge at this time. Job ID: [id number]
[2019-08-27 05:43] LABS: #Basophils 0.1 thou/uL (0.0-0.2); #Eosinphils 0.3 thou/uL (0.0-0.7); #Lymphocytes 1.7 thou/uL (1.20-3.40); #Monocytes 1.1 thou/uL (0.11-0.59); #Neutrophils 5.5 thou/uL (1.40-6.50); %Basophils 0.7 % (0.0-1.0); %Eosinophils 3.6 % (0.0-10.0); %Lymphocytes 19.3 % (21.0-51.0); %Monocytes 12.9 % (0.0-10.0); %Neutrophils 63.4 % (42.0-75.0); Hemoglobin 8.9 g/dL (12.0-16.0); Mean Corpuscular HGB CONC 32.8 g/dL (32.0-36.0); Mean Corpuscular Hemoglobin 32.4 pg (27.0-31.0); Mean Corpuscular Volume 98.7 fL (78.0-98.0); Platelet Count 137 thou/uL (130-400); RBC Distribution Width 11.7 % (11.5-14.5); Red Blood Cell (RBC) Count 2.74 mill/uL (4.20-5.40); White Blood Cell (WBC) Count 8.7 thou/uL (4.8-10.8)
[2019-08-27 06:08] LABS: Anion Gap 9 mmol/L (10-20); BUN (Urea Nitrogen) 51 mg/dL (9.8-20.1); Calc. Creatinine Clearance 24 mL/min (70-130); Calcium 8.2 mg/dL (7.8-10.44); Carbon Dioxide 31 mmol/L (23-31); Chloride 96 mmol/L (98-107); Estimated GFR-MDRD 26; Glucose 220 mg/dL (83-110); Magnesium 2.4 mg/dL (1.6-2.6); Phosphorus 2.5 mg/dL (2.3-4.7); Sodium 132 mmol/L (136-145)
[2019-08-27] MEDS: Acetaminophen 500 MG TAB PO SCH ×4 (06:11→23:51)
[2019-08-27] MEDS: Cipro 250 MG TAB PO SCH (06:11)
[2019-08-27] MEDS: Levothyroxine Sodium 75 MCG TAB PO SCH (06:11)
[2019-08-27] MEDS: Mometasone 200 MCG/Formoterol 5 MCG 120 PUFF INHALER INH SCH (06:57)
[2019-08-27] MEDS: prednisoLONE 1% Ophth Susp 5 ml Bottle EA EYE SCH (09:21)
[2019-08-27] MEDS: Carvedilol 6.25 MG TAB PO SCH ×3 (09:22→21:15)
[2019-08-27] MEDS: Heparin 5,000 UNITS/ML VIAL SC SCH ×2 (09:22→21:16)
[2019-08-27] MEDS: Venlafaxine HCl XR 75 MG CAP PO SCH (09:22)
[2019-08-27] MEDS: Senokot S 8.6-50 MG TAB PO SCH ×2 (09:22→21:15)
[2019-08-27] MEDS: Polyethylene Glycol 3350 17 GM Packet PO SCH (09:23)
--- NOTE | 2019-08-27 16:26 | PRG ---
DATE OF SERVICE: 08/27/2019 SUBJECTIVE: The patient was seen during morning rounds with Dr. Murrieta. The patient is awake, alert, in no distress, sitting up in bedside chair. The patient had no overnight events. The patient had her Roberson discontinued earlier this morning and has already been up to the restroom and voided without any difficulties. The patient's pain is well controlled and she is tolerating her diabetic diet at this time. OBJECTIVE: VITAL SIGNS: Pulse 63, temperature 98.3, respirations 16, SpO2 of 98% on 1.5 L nasal cannula. GENERAL: Elderly female, awake, alert, no distress. RESPIRATORY: Good inspiratory and expiratory effort. Respirations are even, nonlabored. CARDIAC: Regular rate, regular rhythm. EXTREMITIES: Moves all extremities. No focal deficits. LABORATORY DATA: WBC 8.7, RBC 2.74, hemoglobin 8.9, hematocrit 27.0, platelets 137. Sodium 132, potassium 4.0, chloride 96, BUN 51, creatinine 1.85, estimated GFR 26, glucose 220, calcium 8.2, phosphorus 2.5, magnesium 2.4, BNP 1206.0. DIAGNOSTIC DATA: There are no new diagnostics to review today. IMPRESSION: 1. Mechanical fall with right intertrochanteric femur fracture, status post repair. 2. Mild heart failure exacerbation, improved. 3. Urinary tract infection on admission, treated. 4. Acute adrenal insufficiency, resolved. 5. Qtemb-mf-rkiflez kidney disease stage 3, improving. 6. Hyponatremia. 7. History of diabetes, pacemaker, dementia, systolic heart failure, gastroesophageal reflux disease, colon cancer, hypertension, and osteoarthritis. PLAN: Continue supportive care and pain regimen. Continue physical and occupational therapy. Continue free water restriction to 1 L per day, but may have unlimited Gatorade for hyponatremia. We will continue to monitor and restrict to no free water if no improvement. [facility] The patient is ready for discharge at this time. Job ID: [id number]
[2019-08-27] MEDS: Atorvastatin Calcium 40 MG TAB PO SCH (21:15)
--- NOTE | 2019-08-28 03:53 | PRG ---
DATE OF SERVICE: 08/27/2019 SUBJECTIVE: The patient was seen this evening during rounds. She was lying in bed, resting comfortably and asleep with no signs of acute distress. Nursing reported no acute events. OBJECTIVE: VITAL SIGNS: Temperature 98.9, pulse 61, respirations 16, oxygen saturation 100% on room air, blood pressure 159/71. GENERAL: Well-appearing elderly female, lying in bed, resting comfortably and asleep with no signs of acute distress. PULMONARY: Equal chest rise and fall. No signs of acute respiratory distress. ASSESSMENT: 1. Status post mechanical fall. 2. Right intertrochanteric femur fracture, status post repair. 3. Urinary tract infection, uncomplicated. 4. Acute adrenal insufficiency, resolved. 5. History of diabetes, coronary artery disease, AV block, pacemaker, dementia, systolic heart failure, gastroesophageal reflux disease, colon cancer, hyperlipidemia, hypothyroidism, hypertension, and osteoarthritis. PLAN: Continue current diet and pain regimen. Continue physical and occupational therapy. Continue 1 L free water restriction for her hyponatremia. We will start the patient's home long acting insulin. We will also keep a sliding scale as well. The patient is ready for discharge at this time. She is waiting except insurance authorization for [facility]. Job ID: [id number]
[2019-08-28] MEDS: Acetaminophen 500 MG TAB PO SCH ×4 (05:15→23:01)
[2019-08-28] MEDS: Levothyroxine Sodium 75 MCG TAB PO SCH (05:15)
[2019-08-28 06:11] LABS: Anion Gap 10 mmol/L (10-20); BUN (Urea Nitrogen) 44 mg/dL (9.8-20.1); Calc. Creatinine Clearance 27 mL/min (70-130); Calcium 8.5 mg/dL (7.8-10.44); Carbon Dioxide 31 mmol/L (23-31); Chloride 101 mmol/L (98-107); Estimated GFR-MDRD 31; Glucose 210 mg/dL (83-110); Magnesium 2.5 mg/dL (1.6-2.6); Phosphorus 2.6 mg/dL (2.3-4.7); Potassium 4.7 mmol/L (3.5-5.1); Sodium 137 mmol/L (136-145)
[2019-08-28] MEDS: Insulin Regular 300 UNITS/3 ML VIAL SC PRN ×3 (06:16→18:18)
[2019-08-28] MEDS: Mometasone 200 MCG/Formoterol 5 MCG 120 PUFF INHALER INH SCH (07:18)
[2019-08-28] MEDS: Venlafaxine HCl XR 75 MG CAP PO SCH (09:47)
[2019-08-28] MEDS: Polyethylene Glycol 3350 17 GM Packet PO SCH (09:47)
[2019-08-28] MEDS: prednisoLONE 1% Ophth Susp 5 ml Bottle EA EYE SCH (09:47)
[2019-08-28] MEDS: Heparin 5,000 UNITS/ML VIAL SC SCH ×2 (09:47→21:31)
[2019-08-28] MEDS: Carvedilol 6.25 MG TAB PO SCH ×4 (09:47→21:41)
[2019-08-28] MEDS: Senokot S 8.6-50 MG TAB PO SCH ×2 (09:47→21:29)
[2019-08-28] MEDS: HumuLIN 70/30 (300 UNITS/3 ML VIAL) SC SCH ×2 (09:48→21:32)
--- NOTE | 2019-08-28 13:26 | PRG ---
DATE OF SERVICE: 08/28/2019 SUBJECTIVE: The patient was seen during morning rounds with Dr. Murrieta. The patient is awake, alert, in no acute distress, sitting up in bed. The patient is tolerating her diet. The patient reports that she slept well. Her pain is well controlled at this time. The patient is currently on oxygen 2 L nasal cannula and saturations in 100%. The patient's Humulin insulin was started last night. OBJECTIVE: VITAL SIGNS: Temperature 97.6, pulse 60, respirations 14, SpO2 of 100% on 2 L nasal cannula, and blood pressure 161/79. GENERAL: Well-appearing elderly female, awake, alert, no distress. RESPIRATORY: Good inspiratory and expiratory effort. Respirations are even and nonlabored. CARDIAC: Regular rate, regular rhythm. EXTREMITIES: Moves all extremities: No focal deficits. LABORATORY DATA: Sodium 137, potassium 4.7, chloride 101, anion gap 10, BUN 44, creatinine 1.59, estimated GFR 31, glucose 210, calcium 8.5, phosphorus 2.6, magnesium 2.5, BNP 1483.5. DIAGNOSTIC DATA: No new diagnostics to review today. IMPRESSION: 1. Mechanical fall with right intertrochanteric femur fracture, status post repair. 2. Mild heart failure exacerbation, improved. 3. Urinary tract infection on admission, treated. 4. Acute adrenal insufficiency, resolved. 5. Rtlyb-gq-qspyykt kidney disease stage 3. Continues to improve. 6. Hyponatremia, improved. 7. History of diabetes, pacemaker, dementia, systolic heart failure, gastroesophageal reflux disease, colon cancer, hypertension, and osteoarthritis. PLAN: Continue supportive care and pain regimen. Continue physical and occupational therapy. The patient is pending placement to [facility] [place]. The patient is ready for discharge at this time. Job ID: [id number]
[2019-08-28] MEDS: hydrALAZINE 25 MG TAB PO SCH ×3 (14:41→21:42)
[2019-08-28] MEDS: Cyclobenzaprine 10 MG TAB PO PRN (14:41)
[2019-08-28] MEDS ORDERED: Bisacodyl 10 MG SUPP PR PRN (14:56)
[2019-08-28] MEDS: Atorvastatin Calcium 40 MG TAB PO SCH (21:26)
[2019-08-28] MEDS: Melatonin 3 MG TAB PO PRN (21:47)
[2019-08-29] MEDS: Levothyroxine Sodium 75 MCG TAB PO SCH (05:36)
[2019-08-29] MEDS: Acetaminophen 500 MG TAB PO SCH ×2 (05:36→11:11)
[2019-08-29] MEDS: Mometasone 200 MCG/Formoterol 5 MCG 120 PUFF INHALER INH SCH (06:41)
[2019-08-29] MEDS: Senokot S 8.6-50 MG TAB PO SCH (08:23)
[2019-08-29] MEDS: Polyethylene Glycol 3350 17 GM Packet PO SCH (08:23)
[2019-08-29] MEDS: HumuLIN 70/30 (300 UNITS/3 ML VIAL) SC SCH (08:24)
[2019-08-29] MEDS: Heparin 5,000 UNITS/ML VIAL SC SCH (08:24)
[2019-08-29] MEDS: hydrALAZINE 25 MG TAB PO SCH (08:24)
[2019-08-29] MEDS: Venlafaxine HCl XR 75 MG CAP PO SCH (08:25)
[2019-08-29] MEDS: Carvedilol 6.25 MG TAB PO SCH (08:25)
[2019-08-29] MEDS: prednisoLONE 1% Ophth Susp 5 ml Bottle EA EYE SCH (08:25)
[2019-08-29] MEDS ORDERED: Losartan 25 MG TAB PO SCH (09:00)
[2019-08-29] MEDS ORDERED: Furosemide 40 MG TAB PO SCH (09:00)
[2019-08-29 10:56] VITALS: BP 106/49; TEMP 98.4
[2019-08-29] MEDS: Insulin Regular 300 UNITS/3 ML VIAL SC PRN (12:43)
--- NOTE | 2019-08-29 14:04 | PRG ---
DATE OF SERVICE: 08/29/2019 SUBJECTIVE: The patient was evaluated during morning rounds by the multidisciplinary trauma team. The patient was awake and alert, in no acute distress, resting comfortably in bed with her daughter at bedside. The patient is tolerating her diet well and recently had a very large bowel movement. She has minimal to moderate pain at her incision site of her right hip. Her oxygen requirement has been discontinued and the patient's diabetes has been controlled with moderate and bedtime sliding scale insulin. OBJECTIVE: VITAL SIGNS: Reviewed and the patient's temperature was found to be 98.4, pulse 65 beats per minute, blood pressure 106/49, respirations 16 breaths per minute, oxygen saturation 100% on 1 L nasal cannula. GENERAL: Frail, elderly appearing female, in no acute cardiopulmonary distress, complaining minimally of pain at her right hip. CARDIOVASCULAR: Demonstrated regular rate and rhythm without murmurs, clicks, gallops, or rubs. RESPIRATORY: Demonstrated clear lungs to auscultation bilaterally without wheezes, rales, or rhonchi. GI: Soft, protuberant abdomen with normoactive bowel sounds x4. No tenderness to palpation. MUSCULOSKELETAL: Well-healing surgical incision site at the proximal aspect of the right femur. No obvious drainage, spreading erythema, induration, appropriately tender to palpation. The patient was able to move all 4 extremities, particularly with regard to her right lower extremity and was able to move her leg as well as wiggle her toes without severe discomfort or limitation of mobility. LABORATORY DATA: No new imaging or laboratory analysis was performed since the most recent evaluation. ASSESSMENT: 1. Mechanical fall with right intertrochanteric femur fracture, status post repair. 2. Mild heart failure exacerbation, improved. 3. Urinary tract infection, treated. 4. Acute adrenal insufficiency, resolved. 5. Qpolq-xb-spddcgy kidney injury with known diagnosis of chronic kidney disease stage 3, improving. 6. Hyponatremia, resolved. 7. History of diabetes. 8. Pacemaker placement. 9. Dementia. 10. Systolic heart failure. 11. Gastroesophageal reflux disease. 12. History of colon cancer. 13. Hypertension. 14. Osteoarthritis. PLAN: The patient appears well at this time and has been interacting well with physical and occupational therapy. Fluid status appears euvolemic and the patient's blood pressure has been stable without ongoing signs of fluid overload or recurrent adrenal insufficiency. The patient was previously in the assisted living facility section of [facility], but has recently been approved for inpatient rehab at this time. We will plan for discharge later this afternoon pending transportation. Job ID: [id number]
--- NOTE | 2019-08-30 00:06 | DIS ---
DATE OF ADMISSION: 08/23/2019 DATE OF DISCHARGE: 08/29/2019 ADMISSION DIAGNOSES: Mechanical fall from standing and right intertrochanteric femur fracture, urinary tract infection. DISCHARGE DIAGNOSES: Includes mechanical fall from standing and right intertrochanteric femur fracture, urinary tract infection, acute adrenal insufficiency. CONSULTING PHYSICIAN: Dr. Jacobsen of Orthopedic Surgery. PROCEDURES: The patient went to the OR on August 24, 2019 and had an ORIF of the right intertrochanteric femur fracture by Dr. Jacobsen. HOSPITAL COURSE: The patient is an 89 year old female, who presented to the emergency department via EMS after a mechanical fall at her assisted living. She was found to have a right intertrochanteric femur fracture and a urinary tract infection. Postoperatively, the patient developed hypotension and was diagnosed with acute adrenal insufficiency for which she received hydrocortisone. She did also receive 3 days of antibiotics for her UTI. At the time of discharge, the patient's pain was well controlled, she was tolerating her diabetic diet, she was working with Physical and Occupational Therapy, having bowel movements and voiding without difficulties. DISCHARGE DISPOSITION: [facility] facility. DISCHARGE CONDITION: Satisfactory. PHYSICAL EXAMINATION: VITAL SIGNS: Temperature 97, pulse 64, respirations 18, oxygen saturation 96% on 1 L nasal cannula, blood pressure 131/66. GENERAL: Well-appearing elderly female, sitting up in chair with no signs of acute distress. PULMONARY: Equal chest rise and fall. No signs of acute respiratory distress. DISCHARGE INSTRUCTIONS: The patient was discharged to halfway facility. Activity as tolerated. 75% weightbearing to the right lower extremity. Diabetic diet with Glucerna. She will have Physical and Occupational Therapy. She will be provided with an incentive spirometer and a walker. DISCHARGE MEDICATIONS: Include; 1. Tylenol with Codeine. 2. Albuterol. 3. Aspirin. 4. Atorvastatin. 5. Dulcolax. 6. Carvedilol. 7. Lasix. 8. Subcu heparin. 9. Hydralazine. 10. Humalog. 11. Synthroid. 12. Losartan. 13. Potassium. 14. Magnesium hydroxide. 15. Melatonin. 16. Dulera. 17. MiraLAX. 18. Prednisolone acetate drops. 19. Senokot. 20. Effexor. FOLLOWUP APPOINTMENTS: The patient will follow up with Dr. Jacobsen in 14 days. No need for followup in clinic with Dr. Murrieta. This is a summary of the patient's hospitalization. For full details, please see her medical record in its entirety. The patient was evaluated on the day of discharge. Job ID: [id number] MTDD
[2019-09-04] MEDS ORDERED: cloNIDine 0.1mg/24 Hour PATCH TD SCH (09:00)
== END 2019-08-29 13:40 | DRG 480 ==
LOC: ERS 17:21 → SURG A 20:50
PROVIDERS: ADMIT Surgery; ATTEND Surgery
PROC: 0QS604Z Reposition Right Upper Femur with Internal Fixation Device, Open Approach (ICD-10-PCS; principal; 2019-08-24)
DX: S72.141A Displaced intertrochanteric fracture of right femur, initial encounter for closed fracture (principal); I50.23 Acute on chronic systolic (congestive) heart failure; C18.9 Malignant neoplasm of colon, unspecified; I13.0 Hypertensive heart and chronic kidney disease with heart failure and stage 1 through stage 4 chronic kidney disease, or unspecified chronic kidney disease; N39.0 Urinary tract infection, site not specified; E27.40 Unspecified adrenocortical insufficiency; N17.9 Acute kidney failure, unspecified; F41.9 Anxiety disorder, unspecified; G47.00 Insomnia, unspecified; E11.22 Type 2 diabetes mellitus with diabetic chronic kidney disease; M19.90 Unspecified osteoarthritis, unspecified site; E03.9 Hypothyroidism, unspecified; K21.9 Gastro-esophageal reflux disease without esophagitis; E78.5 Hyperlipidemia, unspecified; N18.3 Chronic kidney disease, stage 3 (moderate); E78.00 Pure hypercholesterolemia, unspecified; W18.39XA Other fall on same level, initial encounter; Z98.42 Cataract extraction status, left eye; Z98.41 Cataract extraction status, right eye; Z90.710 Acquired absence of both cervix and uterus; Z90.49 Acquired absence of other specified parts of digestive tract; Z91.041 Radiographic dye allergy status; Z95.0 Presence of cardiac pacemaker; Z79.4 Long term (current) use of insulin; I95.9 Hypotension, unspecified
CPT/HCPCS: 36415; 36416; 71045; 76000; 80048; 80053; 81001; 82533; 83735; 83880; 84100; 85025; 85027; 85610; 85730; 86850; 86900; 86901; 87077; 87086; 87186; 87635; 93005; 96374; 96375; C1713; G0390; J0670; J0690; J1644; J1720; J1815; J1940; J2270; J2405; J2704; J3010; J3475; J7050; S0028; U0003